=== PATIENT | female | born 2000 | race Caucasian/White ===

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

== ENCOUNTER 2018-10-31 11:57 | Emergency (ER) | payer OTHER ==
--- NOTE | 2018-10-31 12:31 | EDPHY ---
H & P Stated Complaint: Woke c H/A, "blotchy" vision, numb R hand, Hx migraines, no meds. Time Seen by Provider: 10/31/18 12:31 - Personal History Current Tetanus/Diphtheria Vaccine: Yes - Medical/Surgical History Hx Asthma: No Hx Chronic Respiratory Disease: No Hx Diabetes: No Hx Cardiac Disease: No Hx Renal Disease: No Hx Cirrhosis: No Hx Alcoholism: No Hx HIV/AIDS: No Hx Splenectomy or Spleen Trauma: No Other PMH: Seizures, lyme dx, mono. - Social History Smoking Status: Never smoked Constitutional: Initial Vital Signs Temperature (C) 36.7 C 10/31/18 12:11 Heart Rate 59 L 10/31/18 12:11 Respiratory Rate 18 10/31/18 12:11 Blood Pressure 101/61 10/31/18 12:11 O2 Sat (%) 97 10/31/18 12:11 O2 Delivery Mode Room Air Allergies/Adverse Reactions: morphine [Morphine] Allergy (Severe, Verified 10/31/18 12:10) BREATHING DIFFICULTY Home Medications: Medication Instructions Recorded AMPHOTERICIN B 12/07/17 Beg [place] 12/07/17 Codeine/Butalbital/ASA/Caffein 1 - 2 each PO Q4 PRN #12 capsule 12/07/17 [Fiorinal with Codeine #3 Cap] Ondansetron Odt [Zofran Odt 4 mg 4 mg PO Q6 PRN #12 tab 12/07/17 (*)] SUMAtriptan [Sumatriptan] 20 mg NS PRN PRN #5 spray 10/31/18 Sumatriptan Succinate [Imitrex] 100 mg PO PRN PRN #7 tablet 10/31/18 Medical Decision Making ED Course/Re-evaluation: CHIEF COMPLAINT: Migraine with neuro symptoms HISTORY OF PRESENT ILLNESS: The patient is a 18 y/o female with a history of migraines complaining of left- sided headache, poor vision of the right eye, and right hand numbness when she woke up. The patient has been seen by Dr. Bc Grier, neurologist, and has had a full neuro work up. As her symptoms today have not improved she decided to present to the emergency department. Her last migraine was 6 years ago. No fever , body aches, lightheadedness, chest pain, heart palpitations, shortness of breath, cough, abdominal pain, urinary or bowel complaints, paresthesias. REVIEW OF SYSTEMS: A comprehensive 10 system review of systems is otherwise negative aside from elements mentioned in the history of present illness and medical decision making. PHYSICAL EXAM: HR, BP, O2 Sat, RR. Temp noted General Appearance: Lying in dark room, alert, well hydrated, appropriate, and non-toxic appearing. Head: Atraumatic without scalp tenderness or obvious injury Eyes: Pupils equal, round, reactive to light and accommodation, EOMI, no trauma , no injection. Ears: Clear bilaterally, no perforation, normal landmarks Nose: Atraumatic, no rhinorrhea, clear. Throat: There is no erythema or exudates, no lesions, normal tonsils, mucus membranes moist. Neck: Supple, 2+ carotid upstroke, nontender, no lymphadenopathy. Respiratory: No retractions, no distress, no wheezes, and no accessory muscle use. Lungs are clear to auscultation bilaterally. Cardiovascular: Regular rate and rhythm, no murmurs, rubs, or gallops. Bilateral carotid, radial, dorsalis pedis, and posterior tibial pulses intact. Good capillary refill all extremities. Gastrointestinal: Abdomen is soft, nontender, non-distended, no masses, no rebound, no guarding, no peritoneal signs. Musculoskeletal: Normal active ROM of all extremities, atraumatic. Neurological: Alert, appropriate, and interactive. The patient has normal DTRs and non-focal cranial nerves, motor, sensory, and cerebellar exam. Skin: No rashes, good turgor, no nodules on palpation. Past medical history: Migraines, mono, lyme disease, seizures Past surgical history: Denies Family history: Denies Social history: Mother at bedside, student, single DIAGNOSTICS/PROCEDURES/CRITICAL CARE TIME: Not indicated. DIFFERENTIAL DIAGNOSIS: The differential diagnosis for the patient's headache included but was not limited to subarachnoid hemorrhage, migraine headache, tension headache and infectious causes such as meningitis, pharyngitis and sinusitis. MEDICAL DECISION MAKING: The patient is a 18 y/o female with a history of migraines presenting with left- sided headache, poor vision of the right eye, and right hand numbness when she woke up. The patient's symptoms are subjective and she has a normal neuro exam although she is lying in a dark room. Patient is most likely having an atypical migraine as she is having crossover symptoms; migraine cocktail administered. I discussed risks and benefits of having imaging studies performed. If her symptoms do not improve after medications we will do further imaging work up; the patient is comfortable with this plan. 1310: Reassessed patient, she is feeling mildly improved after medication. I will prescribe her Imitrex for her atypical migraine and advise her to follow up with a neurologist. We will continue to observe her until more of her symptoms have improved. 1332: Patient's nurse reports that the patient is crying as she still has a headache. She also reports that the patient has dropped out of school due to "head pressure". 1337: Reassessed patient, her neurological symptoms have improved but she still has a minor headache. I have advised her to followup with Dr. Rhodes, headache specialist in [place] ([phone]). 1425: Reassessed patient, her symptoms continue to improve. Return precautions provided; patient is comfortable with this plan. - Data Points Medications Given: Discontinued Medications Ketorolac Tromethamine (Toradol) 30 mg IVP EDNOW ONE Stop: 10/31/18 12:36 Last Admin: 10/31/18 13:10 Dose: 30 mg Methylprednisolone Sodium Succinate (Solu-Medrol) 125 mg IVP EDNOW ONE Stop: 10/31/18 12:36 Last Admin: 10/31/18 13:02 Dose: 125 mg Metoclopramide HCl (Reglan Injection) 10 mg IVP EDNOW ONE Stop: 10/31/18 12:36 Last Admin: 10/31/18 13:05 Dose: 10 mg Ondansetron HCl (Zofran) 4 mg IVP EDNOW ONE Stop: 10/31/18 12:36 Last Admin: 10/31/18 13:07 Dose: 4 mg Departure - Departure Disposition: Home, Routine, Self-Care Clinical Impression: Atypical migraine Condition: Good Instructions: Migraine Headache (ED) Additional Instructions: 1. Take Imitrex as prescribed for your atypical migraine. 2. Followup with Dr. Rhodes, headache specialist in [place] ([phone]). 3. Return to the emergency department immediately for recurrence of headache, nausea, vomiting, numbness, weakness, neck pain, fever or other concerns. Referrals: [facility] [Other] - As per Instructions Raymundo Villafuerte DO [Medical Doctor] - As per Instructions Dr. Meagan [Other] - As per Instructions Prescriptions: SUMAtriptan [Sumatriptan] 20 mg NS PRN PRN #5 spray PRN Reason: Headache, Migrane Sumatriptan Succinate [Imitrex] 100 mg PO PRN PRN #7 tablet PRN Reason: Headache, Migrane Report Scribed for: Drew Lundberg Report Scribed by: Mariza James Date of Report: 10/31/18 Time of Report: 13:06
[2018-10-31] MEDS ORDERED: methylPREDNISolone SOD SUCC 125 MG/2 ML VIAL IVP ONE (12:35)
[2018-10-31] MEDS ORDERED: KETOROLAC 30 MG/1 ML SDV IVP ONE (12:35)
[2018-10-31] MEDS ORDERED: ONDANSETRON 4 MG/2 ML VIAL IVP ONE (12:35)
[2018-10-31] MEDS ORDERED: METOCLOPRAMIDE 10 MG/2 ML VIAL IVP ONE (12:35)
[2018-10-31 14:42] VITALS: BP 117/87
== END 2018-10-31 14:41 | disposition home or self-care (01) ==
DX: G43.909 Migraine, unspecified, not intractable, without status migrainosus (principal)
CPT/HCPCS: 96374; J1885; J2405; J2765; J2930